=== PATIENT | male | born 1975 | race Caucasian/White ===

== ENCOUNTER 2018-01-08 18:53 | Emergency (ER) | payer BC ==
[~2018-01-08] VITALS: Ht 177.8 cm; Wt 72.6 kg
[2018-01-08 19:12] VITALS: BP 129/83
== END 2018-01-08 21:13 | disposition home or self-care (01) ==
LOC: ER 18:55
DX: S92.351A Displaced fracture of fifth metatarsal bone, right foot, initial encounter for closed fracture (principal); X58.XXXA Exposure to other specified factors, initial encounter; Y93.89 Activity, other specified; Y92.89 Other specified places as the place of occurrence of the external cause; Y99.8 Other external cause status
CPT/HCPCS: 73630-TC; A4606; Z7610